=== PATIENT | female | born 1955 | race Caucasian/White ===

== ENCOUNTER 2016-07-31 17:10 | Emergency (ER) | payer MEDICAID ==
[~2016-07-31] VITALS: Ht 157.5 cm; Wt 80.0 kg
[2016-07-31] MEDS ORDERED: MORPHINE SULFATE 4 MG/ML CPJ (NOT FOR IM USE) IV ONE ×2 (17:45→20:30)
[2016-07-31] MEDS ORDERED: KETOROLAC 30MG/ML VIAL IV ONE (17:45)
[2016-07-31] MEDS ORDERED: PROPOFOL 200MG/20ML VIAL IV STA (19:35)
[2016-07-31] MEDS ORDERED: KETAMINE HCL 50 MG/ML 10ML IV ONE (19:45)
[2016-08-01] MEDS ORDERED: ONDANSETRON HCL 4MG/2ML VIAL IV ONE (00:15)
[2016-08-01 04:23] VITALS: BP 117/71
== END 2016-08-01 07:26 | disposition home or self-care (01) ==
LOC: ER 17:11
DX: S43.005A Unspecified dislocation of left shoulder joint, initial encounter (principal); W19.XXXA Unspecified fall, initial encounter; Y93.89 Activity, other specified; Y99.8 Other external cause status; Y92.481 Parking lot as the place of occurrence of the external cause
CPT/HCPCS: 23650; 73030; 96374; 96375; 96376; 99152; 99285; J1885; J2270; J2405; J3490; Z7610; J2704; L3670